=== PATIENT | male | born 1955 | race African-American/Black ===

== ENCOUNTER 2019-08-25 10:34 | Emergency (ER) | payer MEDICARE, SELFPAY ==
[2019-08-25 10:35] VITALS: BP 146/84; PULSE 98; RESP 16; TEMP 37.3; O2SAT 100; BMI 37.2
--- NOTE | 2019-08-25 11:14 | RAD_ITS ---
STUDY: X-RAY CHEST REASON FOR EXAM: Male, 64 years old. COUGH, SOB TECHNIQUE: PA and lateral views of the chest. COMPARISON: Comparison is made with prior study dated March 16, 2011. FINDINGS: Stable minimal increased markings at the lung bases suggests mild scarring. Calcified granuloma in the medial aspect of the right lung base. There is no demonstrated pleural abnormality. Normal size heart. Normal mediastinum and nimisha. Normal visualized pulmonary arteries. There is atherosclerotic calcification of the aortic arch with tortuosity. There are degenerative changes of the visualized thoracic spine. Normal visualized ribs, clavicles, and shoulders. There is no demonstrated abnormality of the visualized soft tissue structures of the upper abdomen. RAD/Chest PA and Lateral IMPRESSION: Stable mild degree of increased markings at the lung bases suggestive of mild scarring. Electronically Signed: Donte Bey, at 12:19 EST , Service support ,
--- NOTE | 2019-08-25 11:37 | ED.VISSUMM ---
- ER Visit Summary Date of Service: 08/25/19 Chief Complaint: Cough History of Present Illness: The patient is a 64 M no seen past medical history other than prior joint replacements. Patient states he has had a cough occasional days. Subjective fever. No shortness of breath. States that the cough at times he coughs up clear phlegm. Said a significant other of his was recently admitted for similar symptoms. Physical Examination: Older male no acute distress vital signs stable afebrile. Pulse ox 90% on room air no signs hypoxia. No distress. H EENT exam unremarkable. Moist membranes. Neck nontender no lymphadenopathy. No JVD. Lungs dry cough but no rales, rhonchi or wheezing. Equal symmetrical. Heart regular rhythm no murmur. Abdomen soft nontender. Extremities moves all 4. Calves nontender without edema or cords. Back nontender. Skin unremarkable. Neurologically is awake and alert. Test Results: Chest x-ray AP lateral views no acute abnormality. No pneumonia. There is some chronic scarring. Read both by myself the radiologist. 2 views. Emergency Department Course and Treatment: Patient's history and exam are consistent with URI symptoms. Treatment Plan: Repeat exam patient is doing well at 1231. We discussed his x-ray results. Disposition: Discharge Impression: Viral bronchitis This note was generated with [employer] dictation software. It may contain incorrect words, spelling, and punctuation that were not noted in review of the chart prior to signing ED Disposition - Plan for ED Patient: Referrals: Ronan Camarillo MD [Primary Care Provider] -
[2019-08-25 12:32] VITALS: BP 155/92; PULSE 99; RESP 22; TEMP 37.2; O2SAT 97
--- NOTE | 2019-08-25 12:36 | ED.DEP ---
ED Disposition - Plan for ED Patient: Disposition: Home or Assisted Living Instructions: BRONCHITIS, No Antibiotic (Adult) Referrals: Ronan Camarillo MD [Primary Care Provider] - 1 Week if not improving Additional Instructions: Plenty of fluids and rest. Next Tylenol and/or Motrin as needed for fever and chills. [id number] cough syrup as needed.
== END 2019-08-25 12:41 | disposition home or self-care (01) ==
PROVIDERS: Emergency Provider Emergency Medicine; PCP Internal Medicine
DX: J20.8 Acute bronchitis due to other specified organisms (principal); Z72.0 Tobacco use
CPT/HCPCS: 71046; 99282